=== PATIENT | male | born 1995 | race Two or more races ===

== ENCOUNTER 2017-01-02 06:09 | Emergency (ER) | payer OTHER ==
[~2017-01-02] VITALS: Ht 165.1 cm; Wt 90.7 kg
[~2017-01-02 06:09] MED LIST: BACTRIM DS TAB1 EAC1 ORAL; KEFLEX500 MG ORAL; NKM
[2017-01-02 06:26] VITALS: BP 142/92
[2017-01-02] MEDS ORDERED: Ketorolac 30mg Inj IV ONE (07:00)
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
[2017-01-02 07:10] VITALS: BP 122/79
[2017-01-02 07:15] LABS: MEAN CORPUSCULAR HEMOGLOBIN 31.7 PG (27.0-31.0); MEAN CORPUSCULAR HGB CONC 35.3 G/DL (32.0-36.0); MEAN CORPUSCULAR VOLUME 90 FL (80-99); MEAN PLATELET VOLUME 8.1 FL (6.5-10.1); MONOCYTES % (AUTO) 6.8 % (1.0-10.0); NEUTROPHILS % (AUTO) 71.2 % (45.0-75.0); PLATELET COUNT 233 K/UL (150-450); RED BLOOD COUNT 4.95 M/UL (4.70-6.10); RED CELL DISTRIBUTION WIDTH 10.7 % (11.6-14.8); WHITE BLOOD COUNT 12.1 K/UL (4.8-10.8)
[2017-01-02 07:31] LABS: ALANINE AMINOTRANSFERASE 23 U/L (3-41); ANION GAP 12 (5-15); ASPARTATE AMINO TRANSFERASE 18 U/L (5-40); CALCIUM 9.3 mg/dL (8.6-10.2); CARBON DIOXIDE 27 mEQ/L (20-30); CHLORIDE 99 mEQ/L (98-107); CREATININE 1.2 mg/dL (0.7-1.2); GLOMERULAR FILTRATION RATE > 60 mL/min (>60); HEMOLYSIS 11; LIPASE 30 U/L (< 60); POTASSIUM 3.8 mEQ/L (3.4-4.9); SODIUM 138 mEQ/L (135-145)
[2017-01-02 07:43] LABS: BILIRUBIN,DIRECT 0.2 mg/dL (0.1-0.3)
--- NOTE | 2017-01-02 09:03 | Diagnostic Imaging Report ---
Indication: Abdominal pain Technique: Continuous helical transaxial imaging of the abdomen and pelvis was obtained from the lung bases to the pubic symphysis during intravenous contrast administration. Coronal 2-D reformats were also obtained. Study obtained in a Siemens sensation [address] Total Dose length Product (DLP): [address] Dose Index Volume (CTDIvol): 18 mGy Comparison: None Findings: Lung bases are clear. Staple lines noted in association with small bowel loops in the proximal small bowel at left upper quadrant abdomen just below the stomach. The staple lines associated with a slightly patulous appearing small bowel probably a consequence of surgery. There is no compelling evidence for bowel obstruction although no oral contrast was given on this examination. This there is no free fluid or free air. The liver, spleen, pancreas appear normal. Appendix is seen and appears normal. Small hiatal hernia is present. There is a scarring noted within the upper poles of both kidneys. Some deformity and irregularity of the abdominal wall noted consistent with previous surgery and/or penetrating trauma. 3 x 2 cm macroscopic fat-containing mass in the left adrenal gland demonstrated. Impression: Cholelithiasis. Cholecystitis not excluded. Please correlate clinically. Evidence of previous upper abdominal surgery including portions of small bowel. No free fluid or free air. Scarring in the upper pole both kidneys. Incidental left adrenal myelolipoma. Findings discussed with Dr. Glover The CT scanner at [facility] is accredited by the [employer] and the scans are performed using dose optimization techniques as appropriate to a performed exam including Automatic Exposure control.
[2017-01-02 09:54] LABS: APPEARANCE,URINE CLEAR; KETONES,URINE NEGATIVE (NEGATIVE); LEUKOCYTE ESTERASE ,URINE 1+ (NEGATIVE); NITRITE,URINE NEGATIVE (NEGATIVE); PH,URINE 5 (4.5-8.0); PROTEIN,URINE 2+ (NEGATIVE); UROBILINOGEN,URINE 1 MG/DL (0.0-1.0)
[2017-01-02 10:02] LABS: BACTERIA,URINE OCCASIONAL /HPF; RBC,URINE 0-2 /HPF (0 - 0); SQUAMOUS EPITHELIAL CELL,UR OCCASIONAL /LPF (NONE/OCC); WBC,URINE 0-2 /HPF (0 - 0)
[2017-01-02 11:05] VITALS: BP 131/69
== END 2017-01-02 11:05 | disposition home or self-care (01) ==
LOC: EMR 07:00
DX: K80.20 Calculus of gallbladder without cholecystitis without obstruction (principal); F17.200 Nicotine dependence, unspecified, uncomplicated; D17.79 Benign lipomatous neoplasm of other sites
CPT/HCPCS: 36415; 74177; 76700; 80053; 80300; 81003; 82248; 83690; 85025; 96361; 96374; 96375; 99284; J1885; J2405; Q9967